=== PATIENT | female | born 1945 | race Caucasian/White ===

== ENCOUNTER 2017-04-28 07:51 | Day surgery (SDC) | payer OTHER ==
[2017-04-26 12:56] VITALS: BMI 17.2
[2017-04-28] MEDS ORDERED: PROPOFOL 20 ML ONE (07:55)
[2017-04-28] MEDS ORDERED: LIDOCAINE HCL/PF 2% SDV 5ML VIAL ONE (07:56)
[2017-04-28 08:12] VITALS: TEMP 97.6
[2017-04-28 09:58] VITALS: BP 113/72; PULSE 67
== END 2017-04-28 10:00 | disposition home or self-care (01) ==
LOC: FASU-ENDO 07:51
PROVIDERS: ATTEND Internal Medicine Gastroenterology
PROC: 0DJD8ZZ Inspection of Lower Intestinal Tract, Via Natural or Artificial Opening Endoscopic (ICD-10-PCS; principal; 2017-04-28 08:48)
DX: Z12.11 Encounter for screening for malignant neoplasm of colon (principal); Z80.0 Family history of malignant neoplasm of digestive organs